=== PATIENT | female | born 1975 | race Caucasian/White ===

== ENCOUNTER 2020-05-27 17:29 | Emergency (ER) | payer SELFPAY ==
[~2020-05-27] VITALS: Ht 167.6 cm; Wt 81.6 kg
--- NOTE | 2020-05-27 17:29 | NUR ---
Patient BIBA BLS accompanied by [place] [employer], transferred to bed 6. RN evaluating patient at bedside.
--- NOTE | 2020-05-27 17:30 | NUR ---
The patient was placed on a 5150 hold by Tangela BROWN at this time.
[2020-05-27 17:37] VITALS: BP 159/96
--- NOTE | 2020-05-27 17:40 | NUR ---
PT ROOM SET UP PER PROTOCOL
--- NOTE | 2020-05-27 17:45 | NUR ---
44 YEAR OLD FEMALE BIBA FROM HOME AND PLACED ON HOLD BY [employer] - COMPLAINS OF DEPRESSION, STATES THAT SHE IS FEELING SUICIDAL. PT STATES THAT SHE COULD NOT KILL SELF THOUGH BECAUSE OF HER FAMILY, BUT HAS BEEN FEELING THIS WAY FOR A WHILE. PT STATES NO PLAN IN PLACE. PT SAYS SHE HAS NOT BEEN TAKING HER MEDICATIONS RECENTLY OF DEPAKOTE, WELLBUTRIN, AND SEROQUEL. SI PROTOCOL IN PLACE, SITTER AT BEDSIDE PMH - DEPRESSION ALLERGIES - SULFAS
[2020-05-27 18:16] LABS: BASOPHILS % (AUTO) 0.6 % (0.0-2.0); EOSINOPHILS # (AUTO) 0.1 K/uL (0-0.4); EOSINOPHILS % (AUTO) 1.6 % (0.0-4.0); HEMATOCRIT 39.5 % (36-48); HEMOGLOBIN 13.6 g/dL (12.0-16.0); LYMPHOCYTES # (AUTO) 1.4 K/uL (2.5-16.5); LYMPHOCYTES % (AUTO) 29.8 % (20.5-51.1); MEAN CORPUSCULAR HEMOGLOBIN 31 pg (27-31); MEAN CORPUSCULAR HGB CONC 34 g/dL (33-37); MEAN CORPUSCULAR VOLUME 91.1 fL (80-94); MONOCYTES # (AUTO) 0.3 K/uL (0.8-1.0); MONOCYTES % (AUTO) 7.2 % (1.7-9.3); NEUTROPHILS # (AUTO) 2.9 K/uL (1.8-7.7); NEUTROPHILS % (AUTO) 60.8 % (42.2-75.2); PLATELET COUNT (AUTO) 177 K/uL (140-450); RED BLOOD CELL COUNT(AUTO) 4.34 MIL/uL (4.20-5.40); WHITE BLOOD COUNT (AUTO) 4.8 K/uL (4.8-10.8)
[2020-05-27 18:31] LABS: BARBITURATE, URINE NEGATIVE ng/ml (NEG <=200); BENZODIAZEPINE, URINE POSITIVE ng/mL (NEG <=200); CANNABINOID, URINE POSITIVE ng/mL (NEG <=50); COCAINE, URINE NEGATIVE ng/mL (NEG <=300); OPIATE, URINE NEGATIVE ng/mL (NEG <=2000); PHENCYCLIDINE SCREEN,URINE NEGATIVE ng/mL (NEG <=25)
[2020-05-27 18:32] LABS: ANION GAP 11.6 (8-16); CARBON DIOXIDE 28.9 mmol/L (21-32); CREATININE 0.7 mg/dL (0.6-1.3); POTASSIUM 3.5 mmol/L (3.5-5.1)
[2020-05-27 18:34] LABS: ALBUMIN 3.7 g/dL (3.4-5.0); ASPARTATE AMINOTRANSFERASE 39 U/L (15-37); BILIRUBIN,DIRECT 0.1 mg/dL (0.0-0.3); SALICYLATE 6.8 mg/dL (2.8-20.0); TOTAL BILIRUBIN 0.1 mg/dL (0.0-1.0)
[2020-05-27 18:37] LABS: ACETAMINOPHEN < 0.5 ug/ml (10-30)
[2020-05-27] MEDS ORDERED: ONDANSETRON 4 MG ODT PO ONE (18:50)
[2020-05-27] MEDS ORDERED: chlordiazePOXIDE 25 MG CAP ONE (18:53)
--- NOTE | 2020-05-27 19:19 | NUR ---
Ashley joseph in [facility] - 05/27/20 at 1919 by [facility] REPORT GIVEN TO RICHARD ALMANZAR, TRANSFER OF CARE AT THIS TIME
--- NOTE | 2020-05-27 19:20 | NUR ---
RECEIVED REPORT FROM JENELLE TELLES. TRANSFER OF CARE AT THIS TIME.
--- NOTE | 2020-05-27 19:20 | NUR ---
REPORT GIVEN TO RICHARD ALMANZAR, TRANSFER OF CARE AT THIS TIME
[2020-05-27] MEDS ORDERED: ONDANSETRON 4 MG ODT SL ONE (20:15)
--- NOTE | 2020-05-27 20:15 | NUR ---
PT REPORTED NAUSEA. ERMD MADE AWARE, OK TO GIVE ZOFRAN ODT 4MG SL. ORDERS CARRIED OUT.
--- NOTE | 2020-05-27 21:16 | NUR ---
PT AMBULATED TO WITH STEADY GAIT AND BACK TO BED. PT IN STABLE CONDITION, BED LOCKED IN LOWEST POSITION, SIDE RAILS X1. PROVIDED WITH WATER PER REQUEST. ALL PT'S NEEDS MET AT THIS TIME.
--- NOTE | 2020-05-27 22:45 | NUR ---
Ashley joseph in ED - 05/28/20 at 0804 by [facility] BETTY FROM [facility] CALLED FOR INFO ON PT. STATED THEY CANNOT TAKE PT UNTIL BLOOD ALCOHOL IS 150, CURRENTLY AT
--- NOTE | 2020-05-27 22:45 | NUR ---
BETTY FROM [facility] CALLED FOR INFO ON PT. STATED THEY CANNOT TAKE PT UNTIL BLOOD ALCOHOL IS 150. REPORTED TO DANIAL PERRIN, PUT IN ORDER TO ALCHOL BLOOD REDRAW. BETTY STATED SHE WILL BE CALLING FOR UPDATES.
[2020-05-27] MEDS ORDERED: chlordiazePOXIDE 25 MG CAP PO SCH (23:00)
--- NOTE | 2020-05-27 23:30 | NUR ---
PT IS IN BED RESTING. PROVIDED WITH WATER PER REQUEST. ALL PT'S NEEDS MET AT THIS TIME. BED LOCKED IN LOWEST POSITION, SIDE RAIL X1. PULSE OX ON.
--- NOTE | 2020-05-28 01:15 | NUR ---
PT IS IN STABLE CONDITION, EQUAL RISE AND FALL OF CHEST WALL. SIDE RAILS X1, BED LOCKED IN LOWEST POSITION, PT ON PULSE OX.
--- NOTE | 2020-05-28 03:17 | NUR ---
PT IS SLEEPING, EQUAL RISE AND FALL OF CHEST WALL. PT IN STABLE CONDITION, SIDE RAILS X1, BED LOCKED IN LOWEST POSITION, PT ON PULSE OX.
--- NOTE | 2020-05-28 04:26 | NUR ---
PT AMBULATED TO WITH STEADY GAIT AND BACK TO BED. ALL PT'S NEEDS MET AT THIS TIME. PT IN STABLE CONDITION, SIDE RAILS X1, BED LOCKED IN LOWEST POSITION, PT ON PULSE OX.
[2020-05-28] MEDS ORDERED: ONDANSETRON 4 MG/2 ML VIAL IM ONE (05:40)
--- NOTE | 2020-05-28 06:45 | NUR ---
PT IN STABLE CONDITION AND AWAKE. SIDE RAILS X1, BED LOCKED IN LOWEST POSITION, PT ON PULSE OX. ALL PT'S NEEDS MET AT THIS TIME.
--- NOTE | 2020-05-28 07:10 | NUR ---
REPORT GIVEN TO JENELLE RHODES. TRANSFER OF CARE AT THIS TIME.
[2020-05-28] MEDS ORDERED: ONDANSETRON 4 MG ODT PO ONE (07:55)
[2020-05-28] MEDS ORDERED: chlordiazePOXIDE 25 MG CAP PO SCH ×2 (09:00)
--- NOTE | 2020-05-28 09:14 | NUR ---
Pt eating breakfast, awake and alert. VSS
--- NOTE | 2020-05-28 12:45 | NUR ---
Patient moved to [facility] for further care
--- NOTE | 2020-05-28 15:00 | NUR ---
Patient to be transferred to [facility]. Is being transferred due to psych. Receiving facility has accepting physician and available space. ER physician has signed transfer form. Patient or responsible democrat has agreed to transfer and signed form. Patient belongings inventoried and will be sent with patient. Copy of nursing notes, lab reports, EKG, Physicians Orders and X-rays to be sent with patient. Report called to charge at receiving facility. [facility] ambulance service has been called for transfer.
[2020-05-28 15:21] VITALS: BP 126/63
== END 2020-05-28 15:21 | disposition designated cancer center or children's hospital (05) ==
LOC: MED 17:29
DX: R45.851 Suicidal ideations (principal); F10.129 Alcohol abuse with intoxication, unspecified; F10.20 Alcohol dependence, uncomplicated; Z20.828 Contact with and (suspected) exposure to other viral communicable diseases
CPT/HCPCS: 36415; 80048; 80076; 80305; 81025; 85025; 87426; 96372; 99285; G0480; G0482; J2405; Q0162